=== PATIENT | female | born 1985 | race Hispanic/Latino ===

== ENCOUNTER 2020-11-06 13:09 | Emergency (ER) | payer OTHER, SELFPAY ==
[~2020-11-06] VITALS: Ht 170.2 cm; Wt 158.8 kg
[2020-11-06] MEDS ORDERED: GUAIFENESIN-DM 200/20 MG 10 ML PO SCH (13:30)
[2020-11-06] MEDS ORDERED: AZIT250T9 PO (13:33)
[2020-11-06] MEDS ORDERED: PSEU120T62 PO (13:33)
[2020-11-06] MEDS ORDERED: IBUP-2070 PO (13:33)
[2020-11-06] MEDS ORDERED: GUAI-899 PO (13:33)
[2020-11-06] MEDS ORDERED: DEXAMETHASONE SOD PHOSPHATE 4 MG/ML 1ML VIAL IM ONE (14:00)
[2020-11-06 14:43] VITALS: BP 131/90
== END 2020-11-06 14:45 | disposition home or self-care (01) ==
LOC: EDH 13:09
DX: J01.90 Acute sinusitis, unspecified (principal); J40 Bronchitis, not specified as acute or chronic; Z20.822 Contact with and (suspected) exposure to COVID-19; Z79.1 Long term (current) use of non-steroidal anti-inflammatories (NSAID); Z79.52 Long term (current) use of systemic steroids
CPT/HCPCS: 71045; 87635; 87804 ×2; 87880; 96372; 99284; C9803; J1100